=== PATIENT | male | born 1945 | race Caucasian/White ===

== ENCOUNTER 2020-07-17 13:15 | Day surgery (SDC) | payer MEDICARE ==
[~2020-07-17] VITALS: Ht 170.2 cm; Wt 73.6 kg
[~2020-07-17 13:15] MED LIST: ASPI-496 PO; FISH OIL PO; FLUT1POW2 NAS; GLUCOSAMINE PO; HYDR-3246 PO; IBUP-1623 PO; METH750T87 PO; SIMV40TA20 PO; SULF1TAB24 PO; [UNRECOGNIZED DRUG - CODE] HOMETP; [UNRECOGNIZED DRUG - OTHER] PO
[2020-07-17] MEDS ORDERED: LACTATED RINGERS 1,000 ML IV SCH (13:51)
[2020-07-17] MEDS ORDERED: CHLORHEXIDINE 15 ML UDC MM ONE (14:00)
[2020-07-17] MEDS ORDERED: ROSU20TA2 PO (14:12)
[2020-07-17] MEDS ORDERED: HYDR12.517 PO (14:12)
[2020-07-17] MEDS ORDERED: CYCL1DRO EACHEYE (14:12)
[2020-07-17] MEDS ORDERED: VITAMIN D (14:12)
[2020-07-17] MEDS ORDERED: GLUCOS (14:12)
[2020-07-17] MEDS ORDERED: ASPI-496 PO (14:12)
[2020-07-17] MEDS ORDERED: IBUP-1623 PO (14:12)
[2020-07-17 14:16] VITALS: BP 135/87
[2020-07-17] MEDS ORDERED: BACITRACIN 50,000 UNIT ONE (14:24)
[2020-07-17 15:15] LABS: ALBUMIN 3.3 g/dL (3.4-5.0); ANION GAP 8 mmol/L (5-15); CHLORIDE 103 mmol/L (98-107)
[2020-07-17 15:19] LABS: ALANINE AMINOTRANSFERASE 18 U/L (12-78); ALKALINE PHOSPHATASE 101 U/L (45-117); BILIRUBIN,TOTAL 0.7 mg/dL (0.2-1.0); CREATININE 1.07 mg/dL (0.7-1.3); TOTAL PROTEIN 7.7 g/dL (6.4-8.2)
[2020-07-17] MEDS ORDERED: FENTANYL PF 100 MCG/2ML ONE (15:43)
[2020-07-17] MEDS ORDERED: LIDOCAINE 2%, 10ML ONE (16:27)
[2020-07-17 16:30] LABS: CALCIUM 9.4 mg/dL (8.5-10.1)
[2020-07-17] MEDS ORDERED: VANCOMYCIN 1,000 MG ONE (16:30)
[2020-07-17] MEDS ORDERED: SUCCINYLCHOLINE 20 MG/ML, 10ML ONE (17:02)
[2020-07-17] MEDS ORDERED: NEOSTIGMINE 1 MG/ML, 10ML ONE (17:02)
[2020-07-17] MEDS ORDERED: ONDANSETRON 2MG/ML, 2ML ONE (17:02)
[2020-07-17] MEDS ORDERED: CEFAZOLIN 1,000 MG ONE (17:02)
[2020-07-17] MEDS ORDERED: ROCURONIUM 10MG/ML,5ML ONE (17:02)
[2020-07-17] MEDS ORDERED: GLYCOPYRROLATE 0.2MG/1ML, 5ML ONE (17:02)
[2020-07-17] MEDS ORDERED: PROPOFOL 10 MG/ML, 20ML ONE (17:02)
[2020-07-17] MEDS ORDERED: DEXAMETHASONE 4 MG/ML, 1ML ONE (17:02)
[2020-07-17] MEDS ORDERED: PROMETHAZINE 25 MG/ML, 1ML IVPush PRN (17:30)
[2020-07-17] MEDS ORDERED: hydrALAzine 20 MG/ML, 1ML IV PRN (17:30)
[2020-07-17] MEDS ORDERED: ACETAMINOPHEN 325 MG TABLET PO PRN (17:30)
[2020-07-17] MEDS ORDERED: FENTANYL PF 100 MCG/2ML IV PRN (17:30)
[2020-07-17] MEDS ORDERED: HYDROmorphone 1 MG/ML, 1ML INJ IVPush PRN (17:30)
[2020-07-17] MEDS ORDERED: OXYcodone 5 MG/5 ML ORAL.SOL UDC PO PRN (17:30)
[2020-07-17] MEDS ORDERED: LABETALOL 5MG/ML, 20ML IV PRN (17:30)
[2020-07-17] MEDS ORDERED: PROMETHAZINE 25 MG SUPP PR PRN (17:30)
[2020-07-17] MEDS ORDERED: KETOROLAC 30 MG/1 ML IVPush PRN (17:30)
[2020-07-17] MEDS ORDERED: ONDANSETRON 2MG/ML, 2ML IVPush PRN (17:30)
[2020-07-17] MEDS ORDERED: TEMPLATE NON-FORMULARY MED. (Rosuvastatin Calcium** (Crestor**) 20 MG) PO SCH (21:00)
[2020-07-17] MEDS ORDERED: IBUPROFEN 200 MG TABLET PO SCH (21:00)
[2020-07-18] MEDS ORDERED: HYDROCHLOROTHIAZIDE 12.5 MG CAPSULE PO SCH (09:00)
[2020-07-18] MEDS ORDERED: FLUTICASONE PROPIONATE 50 MCG NAS SCH (09:00)
[2020-07-18] MEDS ORDERED: ASPIRIN 81 MG TABLET EC PO SCH (09:00)
== END 2020-07-17 18:37 | disposition home or self-care (01) ==
LOC: OR 13:15
PROVIDERS: ATTEND Orthopaedic Surgery
DX: L02.413 Cutaneous abscess of right upper limb (principal); Z20.828 Contact with and (suspected) exposure to other viral communicable diseases; I10 Essential (primary) hypertension; G47.33 Obstructive sleep apnea (adult) (pediatric); Z79.82 Long term (current) use of aspirin; Z79.1 Long term (current) use of non-steroidal anti-inflammatories (NSAID); Z79.899 Other long term (current) drug therapy; Z88.0 Allergy status to penicillin; Z88.1 Allergy status to other antibiotic agents; Z88.5 Allergy status to narcotic agent; Z98.890 Other specified postprocedural states
CPT/HCPCS: 23030; 36415; 80053; 87070; 87075; 87205; 87635; 93005; J0330; J0690; J1100; J1885; J2001; J2405; J2704; J2710; J3010; J3370; J7120